=== PATIENT | male | born 1960 | race Hispanic/Latino ===

== ENCOUNTER 2021-12-17 08:28 | Emergency (ER) | payer MEDICARE ==
--- NOTE | 2021-12-17 12:30 | XRay Report ---
LUMBAR SPINE 3 VIEWS INDICATION / CLINICAL INFORMATION: back pain. COMPARISON: None available. FINDINGS: VERTEBRAE: No acute fracture. No significant malalignment. DISC SPACES / FACET JOINTS:Mild multilevel discogenic and facet spondylosis. PARASPINAL SOFT TISSUES:No significant abnormality. ADDITIONAL FINDINGS: None. IMPRESSION: 1. No acute findings. Signer Name: Olinda Palmer MD Signed: 12/17/2021 12:26 PM Workstation Name: [id number]
--- NOTE | 2021-12-17 12:37 | Emergency Department Report ---
ED Back Pain/Injury HPI - General Chief Complaint: Back Pain/Injury Stated Complaint: BACK PAIN Source: patient, EMS Limitations: No Limitations - History of Present Illness Initial Comments: 61-year-old male presents to the ED complaining of back pain . Patient has a chronic history of back pain started over 5 years ago after a accident. when he was moving furniture furniture. patient states that his back pain has been hurting off and on for the last year and had been increasing for the last 3- week. He states that he has been unable to contact his primary care doctor. Patient states that primary care doctor told him to come to the ED and have an x-ray done until he is able to be evaluated. Patient denies any dysuria ,fever, IV drug use or trauma. Patient is ambulatory. Patient states pain is currently 5 out of 10. No acute distress noted no ill appearance noted. Similar Symptoms Previously: Yes Radiation: none Severity scale (0 -10): 5 Consistency: intermittent Improves With: none Worsens With: none Associated Symptoms: denies other symptoms - Related Data Previous Rx's Medication Instructions Recorded Last Taken Type Meloxicam [Mobic] 15 mg PO BID 15 Days #30 tab 12/17/21 Unknown Rx methOCARBAMOL [Robaxin TAB] 500 mg PO Q6H PRN 15 Days #30 tab 12/17/21 Unknown Rx Allergies Allergy/AdvReac Type Severity Reaction Status Date / Time No Known Allergies Allergy Verified 12/17/21 08:30 ED Review of Systems ROS: Stated complaint: BACK PAIN Other details as noted in HPI Constitutional: denies: chills, fever Eyes: denies: eye pain, eye discharge, vision change ENT: denies: ear pain, throat pain Respiratory: denies: cough, shortness of breath, wheezing Cardiovascular: denies: chest pain, palpitations Endocrine: no symptoms reported Gastrointestinal: denies: abdominal pain, nausea, diarrhea Genitourinary: denies: urgency, dysuria Musculoskeletal: denies: back pain, joint swelling, arthralgia Skin: denies: rash, lesions Neurological: denies: headache, weakness, paresthesias Psychiatric: denies: anxiety, depression Hematological/Lymphatic: denies: easy bleeding, easy bruising ED Past Medical Hx - Medications Home Medications: Home Medications Medication Instructions Recorded Confirmed Last Taken Type Meloxicam [Mobic] 15 mg PO BID 15 Days #30 tab 12/17/21 Unknown Rx methOCARBAMOL [Robaxin TAB] 500 mg PO Q6H PRN 15 Days #30 tab 12/17/21 Unknown Rx ED Physical Exam - General Limitations: No Limitations General appearance: alert, in no apparent distress - Head Head exam: Present: atraumatic, normocephalic - Eye Eye exam: Present: normal appearance - ENT ENT exam: Present: mucous membranes moist - Neck Neck exam: Present: normal inspection - Respiratory Respiratory exam: Present: normal lung sounds bilaterally. Absent: respiratory distress - Cardiovascular Cardiovascular Exam: Present: regular rate, normal rhythm. Absent: systolic murmur, diastolic murmur, rubs, gallop - GI/Abdominal GI/Abdominal exam: Present: soft, normal bowel sounds - Rectal Rectal exam: Present: deferred - Extremities Exam Extremities exam: Present: normal inspection - Back Exam Back exam: Present: normal inspection - Neurological Exam Neurological exam: Present: alert, oriented X3 - Psychiatric Psychiatric exam: Present: normal affect, normal mood - Skin Skin exam: Present: warm, dry, intact, normal color. Absent: rash ED Course Vital Signs 12/17/21 12:42 Temperature 98.3 F Pulse Rate 58 L Respiratory 18 Rate Blood Pressure 127/69 [Right] O2 Sat by Pulse 98 Oximetry ED Medical Decision Making - Radiology Data [facility] [address] [place] [address] XRay Report Signed Patient: FLORENCE WILSON MR#: [id number] 4 : 1960 Acct:[id number] Age/Sex: 61 / M ADM Date: 12/17/21 Loc: ED Attending Dr: Ordering Physician: ORTEGA ESCAMILLA Date of Service: 12/17/21 Procedure(s): XR spine lumbosacral 2-3V Accession Number(s): [id number] cc: ORTEGA ESCAMILLA Fluoro Time In Minutes: LUMBAR SPINE 3 VIEWS INDICATION / CLINICAL INFORMATION: back pain. COMPARISON: None available. FINDINGS: VERTEBRAE: No acute fracture. No significant malalignment. DISC SPACES / FACET JOINTS:Mild multilevel discogenic and facet spondylosis. PARASPINAL SOFT TISSUES:No significant abnormality. ADDITIONAL FINDINGS: None. IMPRESSION: 1. No acute findings. Signer Name: Olinda Palmer MD Signed: 12/17/2021 12:26 PM Workstation Name: [id number] Transcribed By: DT Dictated By: Nacho Palmer MD Electronically Authenticated By: Nacho Palmer MD Signed Date/Time: 12/17/211225 DD/ 24 TD/TT: - Medical Decision Making 61-year-old male presents to the ED complaining of back pain . Patient has a chronic history of back pain started over 5 years ago after a accident when he was moving furniture. Patient states that his back pain has been hurting off and on for the last year and had been increasing for the last 3-week. He states that he has been unable to contact his primary care doctor. Patient states that primary care doctor told him to come to the ED and have an x-ray done until he is able to be evaluated. Patient denies any dysuria ,fever, IV drug use or trauma. Patient is ambulatory. Patient states pain is currently 5 out of 10. No acute distress noted no ill appearance noted. Physical examination unremarkable. Rechecked the patient is resting quietly quietly and comfortable and feeling better. I discussed the results of diagnostic study, my clinical impression and the plan for further treatment with the patient. Patient agrees with plan and discharge at this present time. All question addressed. I have given the patient instruction regarding a diagnosis ,expectation ,follow- up and return precaution. I explained to the patient that emergent condition may arise and to return to the ED for new worsen and any new persisting condition. I have explained the importance of following up with the primary care physician or referral physician listed below has instructed. The patient verbalized understanding of discharge instruction. Critical care attestation.: If time is entered above; I have spent that time in minutes in the direct care of this critically ill patient, excluding procedure time. ED Disposition Clinical Impression: Spondylosis Disposition: 01 HOME / SELF CARE / HOMELESS Is pt being admited?: No Does the pt Need Aspirin: No Condition: Stable Instructions: Osteoarthritis, Spondylolysis Rehab-SportsMed Additional Instructions: Take medication as prescribed Return to ED for any worsening symptom Prescriptions: Meloxicam [Mobic] 15 mg PO BID 15 Days #30 tab methOCARBAMOL [Robaxin TAB] 500 mg PO Q6H PRN 15 Days #30 tab PRN Reason: Muscle Spasm Referrals: PRIMARY CARE, [Primary Care Provider] - 3-5 Days FLORENCE RODRIGUEZ MD [Staff Physician] - 3-5 Days Time of Disposition: 12:54
[2021-12-17 12:45] VITALS: BP 127/69
== END 2021-12-17 13:25 | disposition home or self-care (01) ==
LOC: ED 08:28
DX: M47.9 Spondylosis, unspecified (principal)
CPT/HCPCS: 72100; 99283